=== PATIENT | male | born 1990 | race Hispanic/Latino ===

== ENCOUNTER 2019-10-19 18:39 | Emergency (ER) | payer BC, OTHER ==
--- OUTSIDE RECORDS SUMMARY | 2019-10-19 18:41 | XMS REPORT | Continuity of Care Document ---
:1990 Author Organization [facility] t Address [address] [place] [address] Dr. Johnson [address] [place] [id number] Care Team Providers Name Role Phone Unavailable Unavailable Unavailable Problems This patient has no known problems. Allergies, Adverse Reactions, Alerts This patient has no known allergies or adverse reactions. Medications This patient has no known medications. Procedures This patient has no known procedures. Results This patient has no known results.
[2019-10-19] MEDS ORDERED: NA CHLORIDE 0.9% 1,000 ML ONE (19:12)
[2019-10-19 20:05] LABS: Barbiturates NEGATIVE (NEGATIVE); Benzodiazepines NEGATIVE (NEGATIVE); Cocaine NEGATIVE (NEGATIVE); METHAMPHETAM NEGATIVE (NEGATIVE); Methadone NEGATIVE (NEGATIVE); Opiates NEGATIVE (NEGATIVE); Phencyclidine NEGATIVE (NEGATIVE); THC Cannibis NEGATIVE (NEGATIVE)
[2019-10-19 20:07] LABS: ALT/SGPT 39 U/L (12-78); AST/SGOT 16 U/L (15-37); Alkaline Phosphatase 98 U/L (45-117); BUN Blood Urea Nitrogen 10 mg/dL (7-18); Bicarbonate 21 mmol/L (21-32); Bilirubin Direct 0.1 mg/dL (0-0.2); Bilirubin Total 0.7 mg/dL (0.2-1.0); Glucose Level 95 mg/dL (74-106); Potassium 3.8 mmol/L (3.5-5.1); Protein, Total 7.5 g/dL (6.4-8.2); Protime INR 1.05; Sodium Level 142 mmol/L (136-145)
[2019-10-19] MEDS ORDERED: LEVETIRACETAM 500 MG/5 ML VIAL IV ONE (20:09)
[2019-10-19] MEDS ORDERED: NA CHLORIDE 0.9% 100 ML IV ONE (20:09)
[2019-10-19 20:18] LABS: Absolute Lymphocytes (CBC) 1.5 K/uL (0.7-4.9); Basophils % 0.4 % (0-1.3); Hematocrit 44.1 % (39.6-49.0); Lymphocytes % 26.1 % (15.3-44.8); MPV 9.8 fL (7.6-11.3); RBC Red Blood Cell Count 5.21 M/uL (4.33-5.43)
--- NOTE | 2019-10-21 15:15 | EDPHYS ---
Physician Documentation [facility] Name: Angelo Beard Age: 28 yrs Sex: Male : 1990 Arrival Date: 10/19/2019 Time: 18:52 Bed 5 Private MD: ED Physician Ketan Modi HPI: 10/18 19:05 This 28 yrs old Male presents to ER via EMS with complaints of Probable cp Seizure. 19:05 The patient presents after having a single isolated seizure, that lasted 15 minute(s), cp the episode(s) was witnessed, by co-worker(s). Character of seizure(s): Loss of consciousness: the patient experienced loss of consciousness, Motor activity: generalized, shaking all over, Incontinence: none. Seizure onset: just prior to arrival. Seizure Hx: Seizure medications: phenytoin. Associated injury: Left upper extremity: anterior aspect of left shoulder, pain. EMS care: none. Current symptoms: Currently, the patient is not experiencing any symptoms, the patient feels back to baseline. 19:05 Patient reports seizure medication recently changed last week from Keppra to Dilantin cp by DR Anna. Historical: - Allergies: 18:57 No Known Allergies; jl7 - Home Meds: 18:57 phenytoin oral [Active]; jl7 - PMHx: 18:57 Seizures; jl7 - PSHx: 18:57 Ear Tubes; jl7 - Immunization history:: Adult Immunizations. - Social history:: Smoking status: Patient/guardian denies using. ROS: 19:10 Constitutional: Negative for body aches, chills, fever, poor PO intake. cp 19:10 Eyes: Negative for injury, pain, redness, and discharge. cp 19:10 Cardiovascular: Negative for chest pain. 19:10 Respiratory: Negative for cough, shortness of breath, wheezing. 19:10 Abdomen/GI: Negative for abdominal pain, vomiting, diarrhea, constipation. 19:10 Back: Negative for pain at rest, pain with movement. 19:10 Neuro: Positive for headache, history of seizure, Negative for altered mental status, weakness. 19:10 All other systems are negative. cp Exam: 19:15 Constitutional: The patient appears in no acute distress, alert, awake, cp non-diaphoretic, non-toxic, well developed, well nourished. 19:15 Head/Face: Normocephalic, atraumatic. cp 19:15 Eyes: Periorbital structures: appear normal, Pupils: equal, round, and reactive to light and accomodation, Extraocular movements: intact throughout, Conjunctiva: normal, no exudate, no injection, Lids and lashes: appear normal, bilaterally. 19:15 ENT: External ear(s): are unremarkable, Nose: is normal, Mouth: Lips: moist, Oral mucosa: moist, Posterior pharynx: Airway: no evidence of obstruction, patent. 19:15 Neck: ROM/movement: is normal, is supple, without pain, no range of motions limitations. 19:15 Chest/axilla: Inspection: normal, Palpation: is normal, no crepitus, no tenderness. 19:15 Cardiovascular: Rate: normal, Rhythm: regular. 19:15 Respiratory: the patient does not display signs of respiratory distress, Respirations: normal, no use of accessory muscles, labored breathing, is not present, Breath sounds: are clear throughout, no decreased breath sounds. 19:15 Abdomen/GI: Inspection: abdomen appears normal, Palpation: abdomen is soft and non-tender, in all quadrants. 19:15 Musculoskeletal/extremity: Exam is negative for decreased range of motion, deformity, injury. 19:15 Neuro: Orientation: to person, place \T\ time. Mentation: is normal, Cerebellar function: is grossly normal, Motor: moves all fours, strength is normal, Sensation: is normal. 19:20 ECG was reviewed by the Attending Physician. cp Vital Signs: 18:53 BP 119 / 72; Pulse 96; Resp 14; Temp 97.2; Pulse Ox 97% ; Weight 81.65 kg; Pain 2/10; jl7 19:00 BP 116 / 80; Pulse 91; Resp 16; Pulse Ox 97% on R/A; rv 19:30 BP 115 / 96; Pulse 83; Resp 13; Pulse Ox 98% on R/A; rv 20:00 BP 135 / 76; Pulse 79; Resp 17; Pulse Ox 100% on R/A; rv 20:58 BP 110 / 92; Pulse 79; Resp 15; Temp 98; Pulse Ox 100% on R/A; rv [place] Coma Score: 18:57 Eye Response: spontaneous(4). Verbal Response: oriented(5). Motor Response: obeys jl7 commands(6). Total: 15. MDM: 18:55 Patient medically screened. ana 19:55 Physician consultation: Shree Anna MD was called at 19:56, was contacted at 19:56, regarding consult, patient's condition, wants patient to restart Keppra at 500mg bid for 5 days and then taper off Dilantin by decreasing 1 tablet less per day until off. 20:50 Data reviewed: vital signs, nurses notes, lab test result(s), and as a result, I will cp discharge patient. 20:50 Counseling: I had a detailed discussion with the patient and/or guardian regarding: the cp historical points, exam findings, and any diagnostic results supporting the discharge/admit diagnosis, lab results, the need for outpatient follow up, a neurologist, to return to the emergency department if symptoms worsen or persist or if there are any questions or concerns that arise at home. ED course: VSS. No seizure activity observed while monitoring patient in ED. Will discharge to home for continued monitoring. 10/18 18:57 Order name: EKG - Nurse/Tech; Complete Time: 19:18 cp 10/18 18:57 Order name: IV Saline Lock; Complete Time: 18:59 10/18 18:57 Order name: Labs collected and sent; Complete Time: 19:08 cp 10/18 18:57 Order name: Urine Dipstick-Ancillary (obtain specimen); Complete Time: 19:45 cp EC:20 Rate is 86 beats/min. Rhythm is regular. WI interval is normal. QRS interval is cp prolonged at 104 msec. QT interval is normal. T waves are Inverted in lead aVR. Interpreted by me. Reviewed by me. Administered Medications: 19:08 Drug: NS 0.9% 1000 ml Route: IV; Rate: 1 bolus; Site: right antecubital; mg2 21:00 Follow up: IV Status: Completed infusion; IV Intake: 1000ml rv 20:00 Drug: Keppra 500 mg Route: IV; Rate: calculated rate; Site: right antecubital; mg2 21:00 Follow up: IV Status: Completed infusion; IV Intake: 100ml rv Disposition: 10/19 05:07 Co-signature as Attending Physician, Ketan Modi MD I agree with the assessment and tw4 plan of care. Disposition: 10/19/19 20:51 Discharged to Home. Impression: Epilepsy and recurrent seizures. - Condition is Stable. - Discharge Instructions: Seizure, Adult. - Prescriptions for Keppra 500 mg Oral Tablet - take 1 tablet by ORAL route every 12 hours; 60 tablet. - Medication Reconciliation Form, Thank You Letter, Antibiotic Education, Prescription Opioid Use form. - Follow up: Shree Anna MD; When: 1 week; Reason: Recheck today's complaints. - Problem is an ongoing problem. - Symptoms have improved. - Notes: Patient instructed to take Keppra twice daily and after 5 days, decrease Dilantin by 1 tablet per day until off. Follow-up with DR Anna next week Signatures: Irwin Killian MD MD cha Page, Corey, PA PA cp Maryellen Mcdonald, RN RN tw2 Lucy Gibson RN RN jl7 Ketan Modi MD MD tw4 Alfonso Sheridan, RN RN mg2 Jem Ames RN RN rv Corrections: (The following items were deleted from the chart) 10/18 20:59 20:51 10/19/2019 20:51 Discharged to Home. Impression: Epilepsy and recurrent seizures. rv Condition is Stable. Forms are Medication Reconciliation Form, Thank You Letter, Antibiotic Education, Prescription Opioid Use. Follow up: Shree Anna; When: 1 week; Reason: Recheck today's complaints. Problem is an ongoing problem. Symptoms have improved. cp
--- NOTE | 2019-10-21 15:16 | ER ---
Nurse's Notes [facility] Name: Angelo Beard Age: 28 yrs Sex: Male : 1990 Arrival Date: 10/19/2019 Time: 18:52 Bed 5 Private MD: Diagnosis: Epilepsy and recurrent seizures Presentation: 10/18 18:53 Chief complaint: EMS states: Witnessed tonic-clonic seizure while at work, pt was jl7 postictal on arrival. Pt A\T\Ox4 in triage. Pt hit head, reports PROCTOR, denies any other pain. Coronavirus screen: Client denies travel out of the [place] in the last 14 days. At this time, the client does not indicate any symptoms associated with coronavirus-19. Ebola Screen: No symptoms or risks identified at this time. Initial Sepsis Screen: Does the patient meet any 2 criteria? No. Patient's initial sepsis screen is negative. Does the patient have a suspected source of infection? No. Patient's initial sepsis screen is negative. Risk Assessment: Do you want to hurt yourself or someone else? Patient reports no desire to harm self or others. Onset of symptoms was October 19, 2019. Care prior to arrival: IV initiated. 18 GA, in the right antecubital area. Transition of care: patient was not received from another setting of care. 18:53 Method Of Arrival: EMS: [facility] 7 18:53 Acuity: BARRY 2 jl7 Triage Assessment: 18:57 General: Appears in no apparent distress. uncomfortable, Behavior is calm, cooperative, jl7 appropriate for age. Pain: Complains of pain in PROCTOR Pain currently is 2 out of 10 on a pain scale. EENT: No signs and/or symptoms were reported regarding the EENT system. Neuro: Level of Consciousness is awake, alert, obeys commands, Oriented to person, place, time, situation. Cardiovascular: Patient's skin is warm and dry. Respiratory: Airway is patent Respiratory effort is even, unlabored, Respiratory pattern is regular, symmetrical. GI: No signs and/or symptoms were reported involving the gastrointestinal system. : No signs and/or symptoms were reported regarding the genitourinary system. Derm: Skin is pink, warm \T\ dry. Musculoskeletal: No signs and/or symptoms reported regarding the musculoskeletal system. Historical: - Allergies: 18:57 No Known Allergies; jl7 - Home Meds: 18:57 phenytoin oral [Active]; jl7 - PMHx: 18:57 Seizures; jl7 - PSHx: 18:57 Ear Tubes; jl7 - Immunization history:: Adult Immunizations. - Social history:: Smoking status: Patient/guardian denies using. Screenin:55 Abuse screen: Denies threats or abuse. Nutritional screening: No deficits noted. tw2 Tuberculosis screening: No symptoms or risk factors identified. Fall Risk None identified. Assessment: 19:19 General: Appears in no apparent distress. comfortable, Behavior is calm, cooperative. mg2 Pain: Complains of pain in head. Neuro: Level of Consciousness is awake, alert, obeys commands, Oriented to person, place, time, situation. Neuro: Seizure activity had seizure this afternoon. Cardiovascular: Capillary refill < 3 seconds Patient's skin is warm and dry. Respiratory: Airway is patent Respiratory effort is even, unlabored, Respiratory pattern is regular, symmetrical. GI: No signs and/or symptoms were reported involving the gastrointestinal system. : No signs and/or symptoms were reported regarding the genitourinary system. EENT: No signs and/or symptoms were reported regarding the EENT system. Derm: Skin is intact, is healthy with good turgor, Skin is pink, warm \T\ dry. normal. Musculoskeletal: Circulation, motion, and sensation intact. Capillary refill < 3 seconds. 20:05 Reassessment: Patient appears in no apparent distress at this time. Patient and/or mg2 family updated on plan of care and expected duration. Pain level reassessed. Patient is alert, oriented x 3, equal unlabored respirations, skin warm/dry/pink. 20:59 Neuro: Level of Consciousness is awake, alert, obeys commands, Oriented to person, rv place, time, situation, Moves all extremities. Full function. Vital Signs: 18:53 BP 119 / 72; Pulse 96; Resp 14; Temp 97.2; Pulse Ox 97% ; Weight 81.65 kg; Pain 2/10; jl7 19:00 BP 116 / 80; Pulse 91; Resp 16; Pulse Ox 97% on R/A; rv 19:30 BP 115 / 96; Pulse 83; Resp 13; Pulse Ox 98% on R/A; rv 20:00 BP 135 / 76; Pulse 79; Resp 17; Pulse Ox 100% on R/A; rv 20:58 BP 110 / 92; Pulse 79; Resp 15; Temp 98; Pulse Ox 100% on R/A; rv [place] Coma Score: 18:57 Eye Response: spontaneous(4). Verbal Response: oriented(5). Motor Response: obeys jl7 commands(6). Total: 15. ED Course: 18:52 Patient arrived in ED. jl7 18:53 Bed in low position. Call light in reach. Side rails up X2. Seizure precautions tw2 initiated. monitor tech on. Pulse ox on. NIBP on. 18:55 Irwin Killian MD is Attending Physician. [facility] 18:56 Triage completed. jl7 18:56 Irwin Owen PA is PHCP. cp 18:56 Arm band placed on. tw2 19:00 Inserted saline lock: by RENETTA Ayala. mg2 19:08 Alfonso Sheridan RN is Primary Nurse. mg2 19:18 No provider procedures requiring assistance completed. mg2 19:30 Ketan Modi MD is Attending Physician. cp 20:50 Shree Anna MD is Referral Physician. cp 20:59 IV discontinued, intact, bleeding controlled, No redness/swelling at site. Pressure rv dressing applied. Administered Medications: 19:08 Drug: NS 0.9% 1000 ml Route: IV; Rate: 1 bolus; Site: right antecubital; mg2 21:00 Follow up: IV Status: Completed infusion; IV Intake: 1000ml rv 20:00 Drug: Keppra 500 mg Route: IV; Rate: calculated rate; Site: right antecubital; mg2 21:00 Follow up: IV Status: Completed infusion; IV Intake: 100ml rv Intake: 21:00 IV: 100ml; Total: 100ml. rv 21:00 IV: 1000ml; Total: 1100ml. rv Outcome: 20:51 Discharge ordered by . cp 20:59 Discharged to home ambulatory. rv 20:59 Condition: improved 20:59 Discharge instructions given to patient, Instructed on discharge instructions, follow up and referral plans. medication usage, Demonstrated understanding of instructions, follow-up care, medications, Prescriptions given X 1. 20:59 Patient left the ED. rv Signatures: Irwin Killian MD MD cha Page, Corey, PA PA cp Wise, Tara, RN RN tw2 Lucy Gibson, RN RN jl7 Alfonso Sheridan, RN RN mg2 Jem Ames, RN RN rv
[2019-10-22 12:08] VITALS: O2SAT 100
[2019-10-22 12:09] VITALS: BP 110/92; TEMP 98
--- NOTE | 2019-10-23 20:06 | EKG ---
Test Date: 2019-10-19 Test Time: 19:16:20 Bobbin Cleaner: MG MEASUREMENT RESULTS: Intervals: Rate: 86 [place]: 182 QRSD: 104 QT: 348 QTc: 416 [place]: P: 57 NJ: 182 QRS: 54 T: 58 INTERPRETIVE STATEMENTS: Normal sinus rhythm Possible Left atrial enlargement Incomplete right bundle branch block Borderline ECG No previous ECG available for comparison Electronically Signed On 10-23-19 19:59:53 CDT by James Morrow
== END 2019-10-19 20:59 | disposition home or self-care (01) ==
LOC: ER 18:39
DX: G40.802 Other epilepsy, not intractable, without status epilepticus (principal); R51 Headache
CPT/HCPCS: 96365; 96361; 85025; 80048; 36415; 80320; 80329 ×2; 85610; 82947; 80076; 80307 ×8; 85730; 99284; J1953; J7030; 93005